=== PATIENT | male | born 1970 | race African-American/Black ===

== ENCOUNTER 2021-08-11 18:50 | Emergency (ER) | payer MEDICAID ==
[~2021-08-11] VITALS: Ht 177.8 cm; Wt 75.0 kg
[2021-08-11 18:56] VITALS: BP 161/74
== END 2021-08-11 20:30 | disposition left against medical advice (07) ==
LOC: ER 18:50
DX: Z53.21 Procedure and treatment not carried out due to patient leaving prior to being seen by health care provider (principal)

== ENCOUNTER 2023-07-24 09:36 | Emergency (ER) | payer MEDICAID ==
[~2023-07-24] VITALS: Ht 177.8 cm; Wt 73.0 kg
[2023-07-24 09:45] VITALS: O2SAT 95
[2023-07-24] MEDS ORDERED: AMOX1TAB16 MT (10:09)
[2023-07-24] MEDS ORDERED: SULF1TAB48 MT (10:09)
[2023-07-24 10:54] VITALS: BP 138/85; PULSE 71; RESP 19; TEMP 98.2
== END 2023-07-24 10:55 | disposition home or self-care (01) ==
LOC: ER 09:36
DX: L03.213 Periorbital cellulitis (principal); L02.01 Cutaneous abscess of face
CPT/HCPCS: 99283